=== PATIENT | female | born 1950 | race Caucasian/White ===

== ENCOUNTER 2019-01-21 03:39 | Emergency (ER) | payer BC, OTHER ==
[~2019-01-21] VITALS: Ht 160 cm; Wt 68.0 kg
[~2019-01-21 03:39] MED LIST: ADVAIR 250-501 EACH INH; HYDROCODON-ACE1 EAC7 PO; IBUPROFEN 800800 M1 PO; LISINOPRIL10 MG PO; PROVENTIL HFA6.7 G1 INH; SINGULAIR 10 MG10 M1 PO
[2019-01-21] MEDS ORDERED: SYMBICORT80 MCG/4.1 INH (03:49)
[2019-01-21] MEDS ORDERED: HYDROCHLOROTHIA25 M2 PO (03:49)
[2019-01-21] MEDS ORDERED: ZANAFLEX4 MG PO (03:50)
[2019-01-21] MEDS ORDERED: ALEVE220 MG PO (03:51)
[2019-01-21] MEDS ORDERED: NORCO 5-325 TA1 EAC1 PO (05:04)
[2019-01-21] MEDS ORDERED: SENNA-DOCUSATE1 EAC1 PO (05:04)
[2019-01-21 05:36] VITALS: BP 136/79
== END 2019-01-21 05:30 | disposition home or self-care (01) ==
LOC: ER 03:39
DX: M25.462 Effusion, left knee (principal); Z88.5 Allergy status to narcotic agent; Z88.2 Allergy status to sulfonamides; Z90.49 Acquired absence of other specified parts of digestive tract; Z98.890 Other specified postprocedural states

== ENCOUNTER → 2020-04-13 | Outpatient (CLI) | payer BC, OTHER ==
[~2020-04-13] MED LIST changes: +ALEVE220 MG PO; +HYDROCHLOROTHIA25 M2 PO; +MIRALAX119 GM PO; +NORCO 5-325 TA1 EAC1 PO; +PHENTERMINE H37.5 M1 PO; +SENNA-DOCUSATE1 EAC1 PO; +SYMBICORT80 MCG/4.1 INH; +ZANAFLEX4 MG PO
== END ==
LOC: LAB 08:11
PROVIDERS: ATTEND Orthopaedic Surgery
DX: Z20.828 Contact with and (suspected) exposure to other viral communicable diseases (principal)

== ENCOUNTER 2020-04-19 05:57 | Observation (INO) | payer BC, OTHER ==
[2020-04-13 09:00] LABS: URINE BILIRUBIN NEGATIVE (Negative); URINE BLOOD NEGATIVE (Negative); URINE CLARITY CLEAR; URINE COLOR YELLOW; URINE GLUCOSE-RANDOM* NEGATIVE (Negative); URINE KETONES NEGATIVE (Negative); URINE LEUKOCYTES-REFLEX NEGATIVE (Negative); URINE NITRITE-REFLEX NEGATIVE (Negative); URINE PROTEIN (DIPSTICK) NEGATIVE (Negative); URINE SPECIFIC GRAVITY 1.025 (1.005-1.035)
[2020-04-13 09:03] LABS: HEMATOCRIT 41.8 % (37.0-47.0); HEMOGLOBIN 13.5 gm/dL (12.0-15.0); MCH 26.8 pg (26.0-34.0); MCHC 32.3 g/dL (28.0-37.0); MCV 82.8 fL (80.0-100.0); RBC 5.06 mil/uL (4.20-5.00); RDW 14.8 % (10.5-14.5); WBC 5.3 thou/uL (4.0-11.0)
[2020-04-13 09:10] LABS: ALBUMIN 3.8 g/dL (3.4-5.0); CALCIUM 9.5 mg/dL (8.5-10.1); CREATININE 0.8 mg/dL (0.6-1.0); POTASSIUM 3.8 mmol/L (3.5-5.1)
[2020-04-13 09:16] LABS: PROTIME 9.7 Seconds (9.3-11.4)
[~2020-04-19] VITALS: Ht 152.4 cm; Wt 65.3 kg
[2020-04-19 06:57] VITALS: BP 129/83
[2020-04-19 10:05] VITALS: BP 135/87
[2020-04-19 10:35] VITALS: BP 141/83
[2020-04-19 11:00] VITALS: BP 136/90
--- NOTE | 2020-04-19 11:27 | NUR ---
ASSUMED CARE AT 1005. PT IS A&O X4. PT HAS IV ON LEFT FOREARM AND IT IS INTACT AND SHOWS NO SIGNS OF REDNESS OR SWELLING. PT IS ON 2 LITERS OF OXYGEN. I TRIED TO WEAN PT OFF OXYGEN HOWEVER, SA02 WAS DESAT TO 87-89%. WILL REASSESS LATER. VSS. CLEAR LIQUIDS TOLERATE. PT FEELS SLIGHTLY NAUSEA BUT DENIES NUMBNESS, PAIN, TINGLING, SOA. PT IS CURRENTLY RESTING. CALL LIGHT WITHIN REACH. WAS TOLD THAT PT WILL BE D/C IN A COUPLE HOURS. ONLY COMPLETED REASSESSMENT ON PT AND TOOK VITALS SIGN ON PT DUE TO PT LEAVING IN THE COUPLE OF HOURS. SCRIPTS ARE IN THE CHART. SCD HOSE ARE IN PLACE. ICE PACK IS ON LEFT KNEE. MARSHALL WRAP IS APPLIED. DRESSING IS INTACT.
--- NOTE | 2020-04-19 15:45 | O ---
[facility] [place] [address] OPERATIVE REPORT Name: COLTON TREVINO Room #: 440-P [facility]..#: [id number] Admission: 04/19/20 Attend Phys: Clyde Christianson MD Discharge: Date of : 54 Report #: [id number] THIS REPORT FOR: cc: Lakia Louis MD, Stany A. MD Clymer,Clyde Villela MD ~ DATE OF SERVICE: 04/19/2020 PREOPERATIVE DIAGNOSIS: Degenerative osteoarthritis, left knee, medial compartment. POSTOPERATIVE DIAGNOSIS: Degenerative osteoarthritis, left knee, medial compartment. PROCEDURE: Left knee medial hemiarthroplasty. SURGEON: Clyde Christianson MD INDICATIONS: This healthy, fit and active 70-year-old female has moderate severe progressive degenerative osteoarthritis in the left knee, principally involving the medial compartment. 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 The patella and lateral compartments are in much better shape. She has tried conservative treatment with time, anti-inflammatories and knee injection without much benefit. She has elected to go ahead with a medial hemiarthroplasty. DESCRIPTION OF PROCEDURE: The patient was taken to the operating room where she was placed under general anesthesia. A femoral nerve block was also applied on the left side. The left knee and leg were then meticulously prepped and draped. A thigh tourniquet was applied and inflated to 250 mmHg. An anterior longitudinal skin incision was made along the medial border of the patella and patellar tendon. This was extended into the joint, exposing the medial compartment. Marked degenerative change on both the medial femoral condyle and the medial tibial plateau was noted. There were some remnants of the medial meniscus, which were also degenerative in nature. The articular surfaces of the patella and the lateral compartment seemed to be in much better shape. The BiomTus reQRdos knee system was utilized. The tibial outrigger guide was assembled and applied. The tibial cuts were made removing the medial tibial plateau. A guide pin was applied with the initial femoral cutting jig and the distal cut and posterior cut was made. A trial reduction was performed and the knee was still slightly tight in extension. Another mm of distal femur was resected. This allowed good balancing. A small femoral component and a size B left tibial component seemed to fit most appropriately. Trial reduction was performed and a 3 mm polyethylene bearing fit nicely. This resulted in good [address] [address] OPERATIVE REPORT Name: COLTON TREVINO Room #: 440-P [facility]#: [id number] Admission: 04/19/20 Attend Phys: Clyde Christianson MD Discharge: Date of : 54 Report #: [id number] improvement in the slight preoperative varus position and also satisfactory stability with full arc of motion. The trial components were removed. An anchor keel was created in the tibia. The surfaces were thoroughly irrigated and dried. Methyl methacrylate cement was mixed and injected into the porous surface of the proximal tibia. The permanent components were brought onto the field. The Biomet Drew size B medial tibial tray was then inserted. It seated nicely and appeared to be secure. Excess cement was removed from around its margin. The size small femoral component was then inserted impacting this into position using appropriate anchor holes and cement. Excess cement was removed from around its margin. Both components seemed to be stable. The size 3 mm polyethylene meniscal bearing was then inserted. It snapped into place nicely and seemed to be secure. The knee was gently passed through a full arc of motion and seemed to be stable and the bearing seemed to track nicely. The tourniquet was deflated after a total tourniquet time of 44 minutes. Good hemostasis was confirmed. The fascia was closed with multiple #1 Vicryl sutures. The subcutaneous tissues were closed with 3-0 Monocryl and the skin was secured with Steri-Strips. A sterile dressing was applied. The patient was then awakened and returned to recovery room in good condition. <ELECTRONICALLY SIGNED> By: Clyde Christianson MD 04/19/20 1545 [id number] [id number] Clyde Christianson MD /nt
[2020-04-19 20:15] VITALS: BP 136/80
--- NOTE | 2020-04-20 02:42 | NUR ---
ASSESSED AT START OF SHIFT. PT A&OX4 PAIN MANAGED BY PO HYDROCODONE. C/O NUMBENESS ON LEFT FOOT VOIDS VIA BED ESTEVES. PT O2 SATS 95% ON RA. ICE PACK PROVIDED FOR COLD THERAPY. SCD'S ON HARISH LOWER EXT. DENIES N/V. MAYA NIGHT TIME SNACKS. FALL PREC IN PLACE AND CALL LIGHT AT REACH WILL CONT TO MONITOR TILL EOS.
[2020-04-20 06:00] VITALS: BP 127/79
[2020-04-20 07:25] VITALS: BP 121/75
--- NOTE | 2020-04-20 09:36 | NUR ---
ASSESSMENT: CM REVIEWED CHART AND SPOKE WITH PT. PT IS ALERT AND ORIENTED X4. PT REPORTS LIVING AT HOME WITH HER . PT HAS ABOUT 3 STEPS WITH HANDRAIL TO ENTER AND NO STEPS SHE HAS TO USE ONCE INSIDE. PT REPORTS HAVING STEPS TO HER BASEMENT BUT DOES NOT HAVE TO GO DOWN THERE. PT REPORTS SHE AMBULATES INDEPENDENTLY AND DOES NOT HAVE ANY DME. PT IS LIKELY NEEDING A WALKER FOR HOME. PT REPORTS SHE HAS NO PREFERENCE OF DME COMPANY. CM NOTIFIED [employer]. THEY ARE CURRENTLY CHECKING HER INSURANCE. PT REPORTS SHE ANTICIPATES GOING HOME OR DOING OUTPATIENT THERAPY. CM WILL CONTINUE TO FOLLOW TO ASSIST NEEDED.
[2020-04-20 11:01] VITALS: BP 121/75
--- NOTE | 2020-04-20 12:33 | NUR ---
Assumed care of pt. at 0700. Pt. was calm and cooperative. Pt. complained of nausea after working with PT. PRN Zorfran given and relieved symptoms. Pt. cleared for discharge by PT. Pt. given discharge info/education, perscriptions, and had any DC questions answered. Pt. left unit with all belonings.
--- NOTE | 2020-04-23 07:53 | EKG ---
[address] [address] ELECTROCARDIOGRAM REPORT Name: COLTON TREVINO Room #: 440-P [facility]#: [id number] Admission: 04/19/20 Attend Phys: Clyde Christianson MD Discharge: 04/20/20 Date of : 54 Report #: [id number] [facility] Test Date: 2020-04-13 Test Time: 09:03:11 Pat Name: COLTON TREVINO Department: Room: Gender: F Quality Control Supervisor: Andrew CHAVEZ : 1950 Requested By: Clyde Christianson Order Number: [id number] MD: Naresh Gardiner Measurements Intervals [place] Rate: 81 P: 4 [place]: 132 QRS: -46 QRSD: 130 T: 26 QT: 423 QTc: 491 Interpretive Statements Sinus rhythm RBBB and LAFB No previous ECG available for comparison Electronically Signed On 04-13-2020 10:48:33 ANIMAL TREATMENT INVESTIGATOR by Naresh Gardiner [email or web address] <ELECTRONICALLY SIGNED> By: Naresh Gardiner MD 04/13/20 1048 0903 2 MD ANTHONY Díaz
== END 2020-04-20 12:28 | disposition home or self-care (01) ==
LOC: OR 05:57 → TBA 05:57 → OR 08:11 → 4S 10:30 → OR 10:31 → 4S 04-20 12:25
PROVIDERS: ADMIT Orthopaedic Surgery; ATTEND Orthopaedic Surgery
DX: M17.12 Unilateral primary osteoarthritis, left knee (principal); Z79.899 Other long term (current) drug therapy
CPT/HCPCS: 10102; 50010; 50101; 50415; 51130; 51225; 51412; 56525; 56527; 57095; 57103; 57180; 62110; 62900; 64043; 65060; 70005